=== PATIENT | female | born 1995 | race Caucasian/White ===

== ENCOUNTER 2021-04-21 20:12 | Inpatient (IN) ==
[2021-04-21 21:23] LABS: Bilirubin,Urine Negative (Negative); Blood, Urine Negative (Negative); Calcium Oxalate Crystals,Urine Occasional /HPF (Few); Glucose,Urine (UA) 50 mg/dL (Negative); Hyaline Casts,Urine 1 /LPF (0-3); Ketones,Urine 20 mg/dL (Negative); Mucus,Urine Occasional /LPF (Occasional); Nitrite,Urine Negative (Negative); Protein,Urine Negative; RBC,Urine 3 /HPF (0-4); Squamous Epithelial Cell,Urine Occasional /HPF (0-10); Urine Appearance CLEAR (Clear); Urine Color Yellow (Yellow); Urine Specific Gravity 1.017 (1.001-1.035); Urine Urobilinogen < 2.0 EU/DL (0.2-1.0)
[2021-04-21] MEDS ORDERED: MEPERIDINE 50 MG/1 ML VIAL IV PRN (21:40)
[2021-04-21] MEDS ORDERED: ONDANSETRON 4 MG/2 ML VIAL IV PRN (21:40)
[2021-04-21] MEDS ORDERED: BUTORPHANOL 2 MG/ML VIAL IV PRN (21:40)
[2021-04-21] MEDS ORDERED: BETAMETH SODIUM PHOS/ACETATE 30 MG/5 ML VIAL IM SCH (22:00)
[2021-04-21] MEDS ORDERED: MAGNESIUM SULF DRIP 40 GM/1,000 ML ML IV SCH (22:00)
[2021-04-21] MEDS ORDERED: LACTATED RINGERS 1,000 ML IV SCH (22:00)
[2021-04-21 22:27] LABS: Basophils % 0.3 % (0.0-0.8); Eosinophils # 0.2 10*3/uL (0.0-0.87); Eosinophils % 1.5 % (0.00-10.9); Hematocrit 31.6 VOL% (35.7-47.0); Hemoglobin 10.1 GM/DL (12.0-16.0); Immature Granulocytes % 0.7 %; Immature Granulocytes Absolute 0.08 #; Lymphocytes # 2.3 10*3/uL (1.4-4.0); Mean Corpuscular Volume 82.7 FL (87-102); Mean Platelet Volume 9.2 FL (9.6-12.0); Neutrophils % 71.5 % (38.7-73.9); Platelet Count 327 T/CUMM (130-400); Red Blood Count 3.82 MC/CUMM (3.8-5.5); Red Cell Distribution Width 12.3 % (9.3-17.3); White Blood Count 12.1 T/CUMM (4-12)
[2021-04-21 22:41] LABS: Alanine Aminotransferase 12 U/L (13-56); Alkaline Phosphatase 109 U/L (45-117); Aspartate Amino Transferase 11 U/L (0-37); Bilirubin,Total < 0.39 MG/DL (0.20-1.00); Calcium 8.6 MG/DL (8.5-10.1)
[2021-04-21 22:42] LABS: Albumin 2.5 G/DL (3.4-5.0); Blood Urea Nitrogen 11 MG/DL (7-18); Carbon Dioxide 25 MMOL/L (21-32); Estimated Glom Filtration Rate 133 ML/MIN; Glucose 98 MG/DL (74-106); Osmolality,Calculated 273.7 MOS/KG (273-304); Potassium 3.7 MMOL/L (3.5-5.1); Sodium 138 MMOL/L (136-145); Total Protein 6.6 G/DL (6.4-8.2)
[2021-04-21 23:00] LABS: Hepatitis B Surface Ag Quant < 0.10 Index; Hepatitis B Surface Ag Result Non-Reactive (NonReactive)
[2021-04-21] MEDS: CLINDAMYCIN INJ 900 MG/50 ML PREMIX IV SCH (23:04)
[2021-04-21 23:12] LABS: HIV Antigen/Antibody Result Nonreactive (Nonreactive)
[2021-04-22 00:19] LABS: Bacteria,Urine Occasional /HPF (Few); Bilirubin,Urine Negative (Negative); Blood, Urine Negative (Negative); Glucose,Urine (UA) 50 mg/dL (Negative); Hyaline Casts,Urine 3 /LPF (0-3); Ketones,Urine 5 mg/dL (Negative); Mucus,Urine Occasional /LPF (Occasional); Nitrite,Urine Negative (Negative); Protein,Urine Negative; Squamous Epithelial Cell,Urine Occasional /HPF (0-10); Urine Appearance CLEAR (Clear); Urine Color Yellow (Yellow); Urine Urobilinogen < 2.0 EU/DL (0.2-1.0)
[2021-04-22] MEDS: ACETAMINOPHEN 500 MG TABLET PO PRN ×2 (03:50→10:22)
[2021-04-22] MEDS: CLINDAMYCIN INJ 900 MG/50 ML PREMIX IV SCH ×2 (06:25→15:12)
[2021-04-22] MEDS ORDERED: BUTORPHANOL 1 MG/ML VIAL IV ONE (11:41)
[2021-04-22] MEDS ORDERED: BETAMETH SODIUM PHOS/ACETATE 30 MG/5 ML VIAL IM SCH (12:00)
[2021-04-22] MEDS: NIFEdipine 10 MG CAPSULE PO SCH ×2 (16:58→23:03)
[2021-04-23] MEDS: ACETAMINOPHEN 500 MG TABLET PO PRN (04:45)
[2021-04-23] MEDS: NIFEdipine 10 MG CAPSULE PO SCH (05:13)
[2021-04-23] MEDS ORDERED: INFLUENZA VIRUS VACCINE 0.5 ML SYRINGE IM ONE ×2 (09:00)
== END 2021-04-23 09:00 | disposition home or self-care (01) | DRG 833 ==
LOC: N.LDOUT 20:12 → N.LD 20:17
PROVIDERS: ADMIT Obstetrics & Gynecology; ATTEND Obstetrics & Gynecology